=== PATIENT | male | born 1955 | race Caucasian/White ===

== ENCOUNTER 2020-01-12 09:07 | Outpatient (REF) | payer MEDICARE, OTHER, SELFPAY | END 2020-01-12 09:08 | disposition home or self-care (01) | LOC: HO.BBR 09:07 | PROVIDERS: Visit Provider Internal Medicine | DX: Z13.89 Encounter for screening for other disorder (principal) ==

== ENCOUNTER 2020-04-10 09:51 | Outpatient (REF) | payer MEDICARE, OTHER, SELFPAY | END 2020-04-10 09:52 | disposition home or self-care (01) | LOC: HO.BBR 09:51 | PROVIDERS: Visit Provider Internal Medicine | DX: Z13.89 Encounter for screening for other disorder (principal) ==

== ENCOUNTER 2020-05-18 09:54 | Outpatient (REF) | payer MEDICARE, OTHER, SELFPAY | END 2020-05-18 09:55 | disposition home or self-care (01) | LOC: HO.BBR 09:54 | PROVIDERS: Visit Provider Internal Medicine | DX: Z13.89 Encounter for screening for other disorder (principal) ==

== ENCOUNTER 2020-08-10 11:51 | Outpatient (REF) | payer MEDICARE, SELFPAY | END 2020-08-10 11:52 | disposition home or self-care (01) | LOC: HO.BBR 11:51 | PROVIDERS: Visit Provider Internal Medicine | DX: Z13.89 Encounter for screening for other disorder (principal) ==

== ENCOUNTER 2020-12-17 10:00 | Outpatient (REF) | payer MEDICARE, SELFPAY | END 2020-12-17 10:01 | disposition home or self-care (01) | LOC: HO.BBR 10:00 | PROVIDERS: Visit Provider Internal Medicine | DX: Z13.89 Encounter for screening for other disorder (principal) ==

== ENCOUNTER 2021-03-26 10:50 | Outpatient (REF) | payer MEDICARE, SELFPAY | END 2021-03-26 10:51 | disposition home or self-care (01) | LOC: HO.BBR 10:50 | PROVIDERS: Visit Provider Internal Medicine | DX: Z13.89 Encounter for screening for other disorder (principal) ==

== ENCOUNTER 2022-03-14 09:51 | Outpatient (REF) | payer MEDICARE, SELFPAY | END 2022-03-14 09:52 | disposition home or self-care (01) | LOC: HO.BBR 09:51 | PROVIDERS: Visit Provider Internal Medicine | DX: Z13.89 Encounter for screening for other disorder (principal) ==

== ENCOUNTER 2022-04-25 09:48 | Outpatient (REF) | payer MEDICARE, SELFPAY | END 2022-04-25 09:49 | disposition home or self-care (01) | LOC: HO.BBR 09:48 | PROVIDERS: Visit Provider Internal Medicine | DX: Z13.89 Encounter for screening for other disorder (principal) ==

== ENCOUNTER 2022-05-23 09:44 | Outpatient (REF) | payer MEDICARE, SELFPAY | END 2022-05-23 09:45 | disposition home or self-care (01) | LOC: HO.BBR 09:44 | PROVIDERS: Visit Provider Internal Medicine | DX: Z13.89 Encounter for screening for other disorder (principal) ==

== ENCOUNTER 2022-07-18 10:03 | Outpatient (REF) | payer MEDICARE, SELFPAY | END 2022-07-18 10:04 | disposition home or self-care (01) | LOC: HO.BBR 10:03 | PROVIDERS: Visit Provider Internal Medicine | DX: Z13.89 Encounter for screening for other disorder (principal) ==

== ENCOUNTER 2022-09-26 09:52 | Outpatient (REF) | payer MEDICARE, SELFPAY | END 2022-09-26 09:53 | disposition home or self-care (01) | LOC: HO.BBR 09:52 | PROVIDERS: Visit Provider Internal Medicine | DX: Z13.89 Encounter for screening for other disorder (principal) ==

== ENCOUNTER 2022-12-05 11:48 | Outpatient (REF) | payer MEDICARE, SELFPAY | END 2022-12-05 11:49 | disposition home or self-care (01) | LOC: HO.BBR 11:48 | PROVIDERS: Visit Provider Internal Medicine | DX: Z13.89 Encounter for screening for other disorder (principal) ==

== ENCOUNTER 2023-02-13 11:47 | Outpatient (REF) | payer MEDICARE, SELFPAY | END 2023-02-13 11:48 | disposition home or self-care (01) | LOC: HO.BBR 11:47 | PROVIDERS: Visit Provider Internal Medicine | DX: Z13.89 Encounter for screening for other disorder (principal) ==

== ENCOUNTER 2023-04-17 10:51 | Outpatient (REF) | payer MEDICARE, SELFPAY | END 2023-04-17 10:52 | disposition home or self-care (01) | LOC: HO.BBR 10:51 | PROVIDERS: Visit Provider Internal Medicine | DX: Z13.89 Encounter for screening for other disorder (principal) ==

== ENCOUNTER 2023-09-11 12:48 | Outpatient (REF) | payer MEDICARE, SELFPAY | END 2023-09-11 12:49 | disposition home or self-care (01) | LOC: HO.BBR 12:48 | PROVIDERS: Visit Provider Internal Medicine | DX: Z13.89 Encounter for screening for other disorder (principal) ==